=== PATIENT | female | born 1955 | race Caucasian/White ===

== ENCOUNTER 2019-06-07 07:32 | Day surgery (SDC) | payer MEDICARE, BC ==
[~2019-06-07 07:32] MED LIST: Lactated Ringers 1,000 ML IV SCH; Lidocaine 1%/Sod Bicarbonate in NS 8.4% 1 ML Syringe IDERM PRN; Sodium Chloride 0.9% 10 ML Syringe FLUSH PRN
[2019-06-07] MEDS ORDERED: Lidocaine 1% 4 ML ONE (08:27)
[2019-06-07] MEDS ORDERED: fentaNYL 100 MCG/2 ML SDV ONE (08:28)
[2019-06-07] MEDS ORDERED: Propofol 200 MG/20 ML SDV ONE ×4 (08:28→10:39)
[2019-06-07] MEDS ORDERED: Midazolam 1 MG/ML 2 ML SDV ONE (08:28)
--- NOTE | 2019-06-07 09:10 | PCM.PREANE ---
Preanesthetic Assessment - Anesthesia/Transfusion/Family Hx Anesthesia History: Prior Anesthesia Without Reaction Family History of Anesthesia Reaction: No Transfusion History: No Prior Transfusion(s) Intubation History: Unknown - Review of Systems General: No Symptoms Pulmonary: No Symptoms (Quit smoking 2006) Cardiovascular: No Symptoms (History of HTN), Dyspnea on Exertion Gastrointestinal: No Symptoms (GERD-controlled), Diarrhea (loose for years.) Neurological: No Symptoms Other: Reports: Neck Pain (from past lifting but none with extension) - Physical Assessment NPO Status Date: 06/06/19 NPO Status Time: 20:30 Vital Signs: Last Vital Signs Temp 36.2 C 06/07/19 07:45 Pulse 63 06/07/19 07:45 Resp 16 06/07/19 07:45 BP 141/75 H 06/07/19 07:45 Pulse Ox 97 06/07/19 07:45 Height: 1.57 m Weight: 99.79 kg ASA Class: 2 Mental Status: Alert & Oriented x3 Airway Class: Mallampati = 2 Dentition: Reports: Normal Dentition, Rembrandt(s) (lower bottom), Caries Thyro-Mental Finger Breadths: 3 Mouth Opening Finger Breadths: 3 ROM/Head Extension: Full Lungs: Clear to Auscultation, Normal Respiratory Effort Cardiovascular: Regular Rate, Regular Rhythm, No Murmurs - Allergies Allergies/Adverse Reactions: Allergies Allergy/AdvReac Type Severity Reaction Status Date / Time banana Allergy Cannot Verified 06/06/19 14:21 Remember nut - unspecified Allergy Cannot Verified 06/06/19 14:21 Remember Penicillins Allergy Cannot Verified 06/06/19 14:21 Remember - Anesthesia Plan Pre-Op Medication Ordered: None - Acknowledgements Anesthesia Type Planned: MAC Pt an Appropriate Candidate for the Planned Anesthesia: Yes Alternatives and Risks of Anesthesia Discussed w Pt/Guardian: Yes Pt/Guardian Understands and Agrees with Anesthesia Plan: Yes PreAnesthesia Questionnaire HEENT History: Reports: Impaired Vision Cardiovascular History: Reports: High Cholesterol, Hypertension Respiratory History: Reports: None Gastrointestinal History: Reports: GERD Genitourinary History: Reports: None CLOCK MAKER History: Reports: None Musculoskeletal History: Reports: Other (See Below) Other Musculoskeletal History: radial head fracture Neurological History: Reports: None Psychiatric History: Reports: None Endocrine/Metabolic History: Reports: Vitamin D Deficiency Hematologic History: Reports: None Immunologic History: Reports: None Oncologic (Cancer) History: Reports: None Dermatologic History: Reports: None - Past Surgical History HEENT Surgical History: Reports: Cataract Surgery Cardiovascular Surgical History: Reports: None Respiratory Surgical History: Reports: None GI Surgical History: Reports: None Female Surgical History: Reports: D&C Male Surgical History: Reports: None Endocrine Surgical History: Reports: None Neurological Surgical History: Reports: None Musculoskeletal Surgical History: Reports: ORIF, Other (See Below) Other Musculoskeletal Surgeries/Procedures:: right bunionectomy, ORIF left elbow Oncologic Surgical History: Reports: None Dermatological Surgical History: Reports: None - SUBSTANCE USE Smoking Status *Q: Former Smoker Recreational Drug Use History: No - HOME MEDS Home Medications: Home Meds Acetaminophen [Tylenol] 650 mg PO Q4H PRN 06/06/19 [History] Beta-Carotene(A) w/C & E/Min [Prosight] 1 tab PO DAILY 06/06/19 [History] Calcium Carbonate [Calcium] 500 mg PO DAILY 06/06/19 [History] Cholecalciferol (Vitamin D3) [Vitamin D3] 800 unit PO DAILY 06/06/19 [History] Fish Oil/[place]-3 Fatty Acids [Fish Oil 1,000 MG] 1 gm PO QID 06/06/19 [History] Fosinopril Sodium 20 mg PO DAILY 06/06/19 [History] Glucosam/Chondr/Collagn/Hyalur [Glucosamine & Chondroitin Cap] 1 cap PO DAILY [History] Omeprazole 20 mg PO DAILY 06/06/19 [History] atorvaSTATin Calcium [Atorvastatin Calcium] 20 mg PO DAILY 06/06/19 [History] hydroCHLOROthiazide [Hydrochlorothiazide] 12.5 mg PO DAILY 06/06/19 [History] - CURRENT (IN HOUSE) MEDS Current Meds: Current Medications Lactated Ringer's (Ringers, Lactated) 1,000 mls @ 125 mls/hr IV ASDIRECTED VITO Stop: 06/07/19 23:00 Last Admin: 06/07/19 08:10 Dose: 125 mls/hr Lidocaine/Sodium Bicarbonate (Buffered Lidocaine 1% In Ns 8.4%) 0.25 ml IDERM ONETIME PRN PRN Reason: Prior to IV Start Stop: 06/07/19 18:00 Last Admin: 06/07/19 08:10 Dose: 0.25 ml Sodium Chloride (Saline Flush) 10 ml FLUSH ASDIRECTED PRN PRN Reason: Keep Vein Open Stop: 06/07/19 18:00 Discontinued Medications Fentanyl (Sublimaze) Confirm Administered Dose 100 mcg .ROUTE .STK-MED ONE Stop: 06/07/19 08:29 Lidocaine HCl (Xylocaine-Mpf 1%) Confirm Administered Dose 4 mls @ as directed .ROUTE .STK-MED ONE Stop: 06/07/19 08:28 Midazolam HCl (Versed 1 Mg/Ml) Confirm Administered Dose 2 mg .ROUTE .STK-MED ONE Stop: 06/07/19 08:29 Propofol (Diprivan 20 Ml) Confirm Administered Dose 600 mg .ROUTE .STK-MED ONE Stop: 06/07/19 08:29
[2019-06-07] MEDS ORDERED: Lactated Ringers 1,000 ML ONE (10:29)
--- NOTE | 2019-06-07 10:51 | PCM.OPNOTE ---
- General Post-Op/Procedure Note Date of Surgery/Procedure: 06/07/19 Operative Procedure(s): EGD and colonoscopy Findings: 1. Sliding hiatal hernia 2. Irregular GE junction 3. Diffuse gastritis 4. Polypoid antrum tissue 5. Duodenitis 6. Colon polyps Pre Op Diagnosis: GERD, bloating, need for colorectal cancer screening Post-Op Diagnosis: Same Anesthesia Technique: MAC Primary Surgeon: Love Bauer Anesthesia Provider: Darion Vanegas Pathology: 1. Duodenal biopsy 2. Gastric antrum polypoid tissue biopsy 3. Gastric antrum for H. pylori 4. GE junction biopsy 5. Cecal polyp biopsy 6. Ascending colon polyp x 2 7. Transverse colon polyp 8. Descending colon polyp 9. Sigmoid colon polyp x2 Fluid Replacement, Intraop: 1,200 EBL in mLs: 0 Complications: none apparent Condition: Good
--- NOTE | 2019-06-07 10:52 | PCM48HPAN ---
Post Anesthesia Note - EVALUATION WITHIN 48HRS OF ANESTHETIC Vital Signs in Normal Range: Yes Patient Participated in Evaluation: Yes Respiratory Function Stable: Yes Airway Patent: Yes Cardiovascular Function Stable: Yes Hydration Status Stable: Yes Pain Control Satisfactory: Yes Nausea and Vomiting Control Satisfactory: Yes Mental Status Recovered: Yes Vital Signs: Last Vital Signs Temp 97.2 F 06/07/19 07:45 Pulse 63 06/07/19 07:45 Resp 16 06/07/19 07:45 BP 141/75 H 06/07/19 07:45 Pulse Ox 97 06/07/19 07:45 117/60 93% 70 17 97.8
--- NOTE | 2019-06-07 10:52 | PCM.PRNOTE ---
- Free Text/Narrative Note: Operative Report Date of Procedure: June 07, 2019 Pre Op Diagnosis: GERD, abdominal bloating, need for colorectal cancer screening Post-Op Diagnosis: Same Operative Procedures: 1. EGD with biopsy 2. Colonoscopy to the cecum with biopsy and polypectomy Primary Surgeon: Love Bauer MD Anesthesia Provider: Darion Vanegas CRNA Anesthesia Technique: MAC IV Fluid Replacement, Intraop: 1200 cc crystalloid Output, Urine Amount: 0 cc EBL in mLs: 0 cc Findings: 1. Sliding hiatal hernia 2. Irregular GE junction 3. Diffuse gastritis 4. Polypoid antrum tissue 5. Duodenitis 6. Colon polyps Specimens: 1. Duodenal biopsy 2. Gastric antrum polypoid tissue biopsy 3. Gastric antrum for H. pylori 4. GE junction biopsy 5. Cecal polyp biopsy 6. Ascending colon polyp x 3 7. Transverse colon polyp 8. Descending colon polyp 9. Sigmoid colon polyp x2 Drain/Tubes: None Indication: The patient is a 64-year-old lady who presented to the clinic with GERD and abdominal bloating. The patient reported symptoms of celiac disease. In addition the patient has never had a colonoscopy. The patient was consented for a diagnostic EGD and screening colonoscopy. Risks of bleeding, and perforation were discussed, and the patient agreed to the risks and wished to proceed. Description of the procedure: The patient was taken back to the endoscopy suite, and placed in the left lateral decubitus position. A bite block was placed. The patient was sedated with MAC anesthesia. The Olympus video endoscope was inserted into the oropharynx and guided under direct vision into the esophagus, stomach, and duodenum. The duodenal bulb had erythema consistent with duodenitis, and the second portion of the duodenum appeared to have mild villous flattening. Biopsies were taken in both locations using a cold biopsy forceps. The gastric antrum was inspected and cold biopsy forceps were used to take tissue samples for H. pylori. In addition, in the antrum there were 4-5 areas of polypoid appearing tissue with superficial erythema, possibly inflammation related edema. Biopsies were taken of this polypoid tissue using a cold biopsy forceps. The scope was withdrawn to the stomach and retroflexed. There was diffuse patchy erythema and cobblestone appearing mucosa throughout the stomach consistent with gastritis. No erosions or ulcers were noted. The scope was withdrawn to the esophagus. A this point we noted a small (1 cm) sliding hiatal hernia. The GE junction was irregular with 3 tongues of salmon-colored mucosa extending past the GE junction consistent with Munoz's esophagus changes. Biopsies were taken with a cold biopsy forceps in 4 quadrants at the GE junction for pathology The endoscope was then withdrawn Next, anorectal examination was performed. No lesions, masses or hemorrhoids were noted externally or on palpation. The scope was placed into the rectum and advanced to cecum. Upon reaching the cecum, and the patients cecum was entered. There was minimal tortuosity of the colon requiring no additional maneuvers. The ileocecal valve was well visualized and the appendiceal orifice identified. At this point, the scope was slowly withdrawn, paying attention to the mucosa. The patient had good bowel prep, 85-95 % of the mucosa was visible. In the cecum there was a large conglomeration of polyps measuring greater than 2 cm. Biopsies were taken within this area with a jumbo cold biopsy forceps since it was not appropriate for resection at this time. A 1.3 cm sessile polyp was noted in the ascending colon at the base of the ileocecal valve. This was removed using a jumbo cold biopsy forceps and the area tattooed with Elisabeth ink. An additional 4 mm sessile polyp was found in the ascending colon removed with jumbo cold biopsy forceps nearby was a 2 mm flat polyp which was also removed using jumbo cold biopsy forceps. A 3mm flat polyp was found in the transverse colon and removed with jumbo cold biopsy forceps. A 2-3 mm flat polyp was found in the descending colon and removed with jumbo cold biopsy forceps. A semi-pedunculated 5 mm polyp was found in the sigmoid colon. Resection was attempted using a jumbo cold biopsy forceps but this cannot be completed due to difficulty with the location of the polyp around a fold. Multiple attempts were made. This was partially resected and retrieved with a jumbo cold biopsy forceps. The area was tattooed with Elisabeth ink. An additional 3 mm flat polyp was found in the sigmoid colon removed using cold biopsy forceps. There were multiple 2 to 3 mm hyperplastic appearing polyps in the sigmoid and rectum, these were not removed due to their benign appearance. In the rectum, scope was retroflexed and some hemorrhoidal tissue was noted. The scope was placed back in the lumen and excess air was aspirated. The scope was removed. The patient tolerated the procedure very well. Complications: None apparent Condition: The patient was transported to PACU in stable condition. Love Bauer MD General Surgery
== END 2019-06-07 11:48 | disposition home or self-care (01) ==
LOC: JD.SDS 07:32
PROVIDERS: ATTEND Surgery
DX: Z12.11 Encounter for screening for malignant neoplasm of colon (principal); K31.89 Other diseases of stomach and duodenum; D13.1 Benign neoplasm of stomach; D12.0 Benign neoplasm of cecum; D12.2 Benign neoplasm of ascending colon; D12.3 Benign neoplasm of transverse colon; D12.4 Benign neoplasm of descending colon; D12.5 Benign neoplasm of sigmoid colon; K44.9 Diaphragmatic hernia without obstruction or gangrene; K29.70 Gastritis, unspecified, without bleeding; K29.80 Duodenitis without bleeding; K21.9 Gastro-esophageal reflux disease without esophagitis; I10 Essential (primary) hypertension; E78.5 Hyperlipidemia, unspecified; Z79.899 Other long term (current) drug therapy; Z88.0 Allergy status to penicillin; Z91.018 Allergy to other foods; Z87.891 Personal history of nicotine dependence
CPT/HCPCS: 43239; 45380; 45381; J2001; J2250; J2704; J3010; J7120; 00813